=== PATIENT | female | born 1955 | race Two or more races ===

== ENCOUNTER 2019-05-01 12:31 | Inpatient (IN) | payer OTHER ==
[~2019-05-01] VITALS: Ht 160 cm; Wt 73.4 kg
[2019-05-01 13:42] LABS: Urine Bacteria NONE SEEN /hpf (None Seen); Urine Blood Negative /uL (Negative); Urine Mucus FEW (None Seen); Urine Specific Gravity 1.021 (1.001-1.035); Urine WBC 1 /hpf (0 - 5)
[2019-05-01 14:32] LABS: Basophils # (auto) 0.1 uL; Eosinophils # (auto) 0.1 uL; Eosinophils % (auto) 1.7 % (0.0-7.0); Hematocrit 41.7 % (36.0-46.0); Hemoglobin 13.9 g/dL (12.2-16.2); Lymphocytes # (auto) 1.7 uL; Lymphocytes % (auto) 25.3 % (10.0-50.0); Mean Corpuscular Hemoglobin 30.9 pg (28.0-32.0); Mean Corpuscular Hgb Conc. 33.4 g/dL (32.0-36.0); Mean Corpuscular Volume 92.5 fL (80.0-100.0); Monocytes # (auto) 0.5 uL; Monocytes % (auto) 7.6 % (0.0-12.0); Neutrophils # (auto) 4.4 uL; Neutrophils % (auto) 64.4 % (37.0-80.0); Platelet Count (auto) 348 10^3/uL (140-450); Red Blood Cells 4.51 10^6/uL (4.0-5.20); Red Cell Distribution Width 16.1 % (11.8-14.3); White Blood Cell 6.8 10^3/uL (4.4-10.8)
[2019-05-01 14:40] LABS: Albumin 3.7 g/dL (3.4-5.0); BUN/Creatinine Ratio 10.8; Calcium 9.1 mg/dL (8.5-10.1); Potassium 4.2 mmol/L (3.5-5.1)
[2019-05-01 14:42] LABS: Bilirubin, Total 0.2 mg/dL (0.2-1.0); Total Protein 8.7 g/dL (6.4-8.2)
[2019-05-01] MEDS ORDERED: metroNIDAZOLE 500MG/100ML 100 ML IV ONE (17:00)
[2019-05-01] MEDS ORDERED: SODIUM CHLORIDE 0.9% 1,000 ML IV ONE (17:00)
[2019-05-01] MEDS ORDERED: NITROGLYCERIN 0.4 MG SL TAB SL PRN (17:45)
[2019-05-01] MEDS ORDERED: ONDANSETRON HCL 4 MG/2 ML VIAL IV PRN (17:45)
[2019-05-01] MEDS ORDERED: MORPHINE SULF INJ 2 MG/ML SYRINGE 1ML IV PRN (17:45)
[2019-05-01] MEDS ORDERED: cefTRIAXone 1GM/50ML D5W 50 ML IV ONE (17:45)
[2019-05-01] MEDS ORDERED: DEXTROSE (50%) 50ML SYRG IV PRN (17:45)
[2019-05-01] MEDS: SODIUM CHLORIDE 0.9% 1,000 ML IV SCH ×2 (17:51→18:53)
--- NOTE | 2019-05-01 18:15 | NUR ---
MS admit from ER INGAMIHAI admitted to tele/MS after SBAR received. Patient oriented to MARIAA holland RN, unit, room, bed, and unit policies regarding patient care and visiting hours. Patient weighed by bedscale and encouraged to call if they need something. All questions and concerns addressed, patient verbalized understanding.
[2019-05-01] MEDS ORDERED: LISI-646 (18:40)
[2019-05-01] MEDS ORDERED: METF-372 (18:40)
--- NOTE | 2019-05-01 19:24 | NUR ---
Opening Shift Note Assumed care of patient, awake and alert x 4. No S/S of distress/SOB. Bed is in lowest position and locked. Call light within reach. Board updated. NS infusing at ordered rate. Instructed on POC and to call for assist PRN, will continue to monitor for changes Q1hr and PRN.
[2019-05-01 19:29] VITALS: BP 130/74
[2019-05-01] MEDS ORDERED: TRAZ50TA2 PO (19:41)
[2019-05-01] MEDS ORDERED: OMEP20TA PO (19:41)
[2019-05-01] MEDS: MORPHINE SULF INJ 2 MG/ML SYRINGE 1ML IV PRN (19:57)
--- NOTE | 2019-05-01 21:58 | NUR ---
Paging hospitalist to notify them of abnormal result of Abdominal Pelvic CT. Abdominal pelvic CT scan revealed approximately half of the patient's stomach is in a moderate hiatal hernia in addition to the mild diverticulitis found. Patient is not having any trouble swallowing food but has been having gastroesophageal reflux worseing over the last 6 months. Notifying hospitalist to see if they would like to order a consult or test.
[2019-05-01 22:00] VITALS: BP 121/70
[2019-05-01] MEDS: InsuLIN REG 1unit/0.01ml Soln (100units/ml) SC SCH (22:00)
[2019-05-01] MEDS: metroNIDAZOLE 500MG/100ML 100 ML IV SCH (22:18)
--- NOTE | 2019-05-01 22:18 | NUR ---
Spoke to NORA Domínguez who ordered a GI Consult. Addendum: 05/01/19 at 6735 by ELIZABETH WILKES RN Order repeated, verified, and placed.
[2019-05-01] MEDS: ACCU-CHEK COMFORT CURVE STRIP VI SCH (22:19)
[2019-05-02] MEDS: MORPHINE SULF INJ 2 MG/ML SYRINGE 1ML IV PRN (00:08)
[2019-05-02 05:00] VITALS: BP 116/79
[2019-05-02] MEDS: metroNIDAZOLE 500MG/100ML 100 ML IV SCH ×2 (06:02→14:20)
[2019-05-02] MEDS: InsuLIN REG 1unit/0.01ml Soln (100units/ml) SC SCH ×3 (06:25→17:00)
[2019-05-02] MEDS: ACCU-CHEK COMFORT CURVE STRIP VI SCH ×3 (06:26→17:00)
[2019-05-02 08:00] VITALS: BP 94/60
--- NOTE | 2019-05-02 08:11 | NUR ---
Opening note Patient awake with no distress noted upon assessment. Patient able to ambulate and turn self. IV located in right hand, 22G and on clear liquid diet. Call light within reach, bed in lowest position and side rails up x 2. GI consult confirmed. Will continue to monitor.
[2019-05-02] MEDS ORDERED: cefTRIAXone 1GM/50ML D5W 50 ML IV SCH (09:00)
[2019-05-02 09:20] VITALS: BP 94/60
[2019-05-02] MEDS ORDERED: LISINOPRIL 10 MG TAB PO SCH (10:00)
[2019-05-02] MEDS ORDERED: PANTOPRAZOLE 40 MG TAB PO SCH ×2 (10:00→11:00)
--- NOTE | 2019-05-02 10:24 | NUR ---
ref[employer] Per consult home health. [facility] faxed [facility] ph:[phone] fx: [phone] per Aline [place] has accepted and service to start tomorrow 05/04/19. Alina working on auth from [employer]. Addendum: 05/03/19 at 1725 by Edwina Cartagena Amended: Links added.
[2019-05-02 13:10] VITALS: BP 129/82
--- NOTE | 2019-05-02 14:15 | NUR ---
DR MARTA AMOR FOR GI CONSULT
[2019-05-02] MEDS: SODIUM CHLORIDE 0.9% 1,000 ML IV SCH (14:18)
[2019-05-02] MEDS ORDERED: PANT40T PO (15:34)
[2019-05-02] MEDS ORDERED: METR500T PO (15:34)
[2019-05-02] MEDS ORDERED: LEVO500T21 PO (15:34)
[2019-05-02 16:00] VITALS: BP 96/55
--- NOTE | 2019-05-02 17:07 | NUR ---
PAGED Page sent to Dr Thea Aranda to verify patients discharge. Awaiting further orders before discharging.
--- NOTE | 2019-05-02 17:16 | NUR ---
TELEPHONE ORDERS Telephone orders received, read back and noted. Per Dr Aranda home health has already been arranged with insurance, patient cleared for discharge today.
--- NOTE | 2019-05-02 17:50 | NUR ---
Discharge instructions given as ordered. Encourage to follow up with PMD as instructed. All questions and concerns addressed. Patient verbalized understanding. Medication reconciliation form completed and copy given to patient. IV removed with catheter intact, pressure dressing applied. Patient ambulated of unit with all personal belongings, accompanied by staff and family member. No distress noted at time of departure.
[2019-05-03] MEDS ORDERED: PANTOPRAZOLE 40 MG TAB PO SCH (10:00)
== END 2019-05-02 18:00 | disposition home health service (06) | DRG 392 ==
LOC: ER 12:39 → WEST WING 12:40
PROVIDERS: ADMIT Nurse Practitioner Acute Care; ATTEND Internal Medicine
DX: K57.32 Diverticulitis of large intestine without perforation or abscess without bleeding (principal); I10 Essential (primary) hypertension; E11.9 Type 2 diabetes mellitus without complications; Z79.84 Long term (current) use of oral hypoglycemic drugs; K21.9 Gastro-esophageal reflux disease without esophagitis; K44.9 Diaphragmatic hernia without obstruction or gangrene; Z90.49 Acquired absence of other specified parts of digestive tract; Z90.710 Acquired absence of both cervix and uterus
CPT/HCPCS: 36415; 74176; 80053; 81001; 82962; 85025; 96365; G0378; J0696; J3490

== ENCOUNTER 2024-11-13 19:44 | Emergency (ER) | payer OTHER ==
[~2024-11-13] VITALS: Ht 162.6 cm; Wt 71.5 kg
[~2024-11-13 19:44] MED LIST: LEVO500T31 PO; LISI20TA56; METF-372; METR500T PO; PANT40T PO; TRAZ-227 PO
--- NOTE | 2024-11-13 20:31 | ED.PDOC ---
History of Present Illness HPI Comments 68 y.o. F, with a history of CVA, DM, GERD, HTN, and varicose veins, presents with c/o inner, left-knee pain, today. Patient comments on pain being ongoing, chronically and intermittently, for unspecified duration of time, that, suddenly, became worse and constant all day, today. She comments on pain being " sharp" in quality and describes it as a "hot liquid running down [her] leg." Patient also reports on, already, consulting with her PCP regarding issue and has an upcoming US appointment on 11/21/24 but says she is unable to bear the bear and is concerned, currently. She endorses no further relevant or pertinent information, such as recent injuries or strenuous activities. Patient denies having any numbness, tingling, weakness, shortness of breath, chest pain, or other associated symptoms or modifiers at this time. Chief Complaint: Lower Extremity Time Seen by MD: 20:00 Primary Care Provider: KAYLEE Griffith Notes: Nurses Notes, Medications, Allergies Allergies: Coded Allergies: NO KNOWN ALLERGIES (Unverified , 05/01/19) Home Meds Active Scripts Pantoprazole Sodium Sesquihydr (Pantoprazole Sodium) 40 Mg Tab, 40 MG PO DAILY for 30 Days Prov:JUANITO FERREIRA MD 05/02/19 Metronidazole (Flagyl) 500 Mg Tab, 500 MG PO Q8HR for 14 Days Prov:JUANITO FERREIRA MD 05/02/19 Levofloxacin (Levaquin) 500 Mg Tab, 500 MG PO DAILY, #14 Prov:JUANITO FERREIRA MD 05/02/19 Reported Medications Trazodone Hcl (Trazodone Hcl) 50 Mg Tab, 50 MG PO, MG 05/01/19 Lisinopril (Lisinopril) 20 Mg Tab 05/01/19 Metformin Hydrochloride (Metformin Hcl) 1,000 Mg Tab 05/01/19 Information Source: Patient Mode of Arrival: Ambulatory Severity: Moderate Timing: Other (see HPI) Duration: Since onset Prehospital treatment: None Past Medical History PAST MEDICAL HISTORY: CVA, DM, GERD, HTN Past Medical History (Other): varicose veins Surgical History: Denies all surgeries BIBLICAL STUDIES PROFESSOR History: No Pertinent BIBLICAL STUDIES PROFESSOR History Family History Family History: Unknown Social History Smoker: Non-Smoker Alcohol: Rarely Drugs: Denies Drug Use Lives In: Home Musculoskeletal: reports: others (inner left knee pain ) All Other Systems: Reviewed and Negative (negative unless otherwise stated above or in HPI) Physical Exam General Appearance: Mild Distress, Normal HEENT: Normal ENT Inspection, Pharynx Normal, TMs Normal Neck: Full Range of Motion, Non-Tender, Normal, Normal Inspection Respiratory: Chest Non-Tender, Lungs Clear, No Accessory Muscle Use, No Respiratory Distress, Normal Breath Sounds Cardiovascular: No Edema, No JVD, No Murmur, No Gallop, Normal Peripheral Pulses, Regular Rate/Rhythm Breast Exam: Deferred Gastrointestinal: No Organomegaly, Non Tender, No Pulsatile Mass, Normal Bowel Sounds, Soft Genitalia: Deferred Pelvic: Deferred Rectal: Deferred Extremities: No calf tenderness, Normal capillary refill, Normal range of motion, No pedal edema, Other (slight tenderness to LLE, full ROM to LLE; multiple varicose veins to BLE) Musculoskeletal : Apperance: Normal Neurologic: Alert, conference reservationist II-XII nml as Tested, No Motor Deficits, Normal Affect, Normal Mood, No Sensory Deficits Cerebellar Function: Normal Reflexes: Normal Skin: Dry, Normal Color, Warm Lymphatic: No Adenopathy Was a procedure done? Was a procedure done?: No Differential Dx Considerations may include: DVT, cellulitis, dermatitis, musculoskeletal pain, sprain X-Ray, Labs, Meds, VS Vital Signs Date Time Temp Pulse Resp B/P (MAP) Pulse Ox O2 Delivery O2 Flow Rate FiO2 11/13/24 19:59 97.3 78 18 196/102 (133) [address] [address] Ph: [phone] DIAGNOSTIC IMAGING Diagnostic Imaging Report : [id number] Signed PATIENT: MIHAI XIONG ACCT: [id number] UNIT: [id number] : 1955 LOC: ER ROOM / BED: / AGE / SEX: 68 / F ADM STATUS: REG ER SERVICE 08 ORDERING PHYSICIAN: FLOR GUTIERREZ MD PROCEDURE(s): LLDVT - LT Lower DVT REASON: left knee pain ORDER NUMBER(s): [id number], ACCESSION NUMBER(s): [id number] Left lower extremity venous duplex Clinical History: left knee pain Comparison: None Technique: Duplex Doppler evaluation of the deep venous systems of both lower extremities from the common femoral veins to the popliteal veins including color Doppler and spectral/pulsed waveform analysis was performed. Findings: LEFT SIDE: The common femoral vein demonstrates appropriate compressibility and waveform variability. There is compressibility/patency of the great saphenous vein at the proximal thigh. The femoral vein demonstrates appropriate compressibility and waveform variability. The deep femoral vein demonstrates appropriate compressibility and waveform variability. The popliteal vein demonstrates appropriate compressibility and waveform variability. There is normal compressibility at the tibioperoneal trunk. Impression: 1. No left femoropopliteal venous thrombosis. ATED BY: MALLORY MEDINA Jr., DO DICTATED DATE/TIME: 11/13/242044 SIGNED BY: MALLORY MEDINA Jr., SIGNED DATE/TIME: 11/13/242044 CC: The patient was discharged with ibuprofen. Time of 1ST Reevaluation: 20:30 Reevaluation 1ST: Unchanged Patient Education/Counseling: Diagnosis, Treatment Family Education/Counseling: No Family Present Departure 1 Departure Time of Disposition: 21:34 Impression: Primary Impression: Knee strain Qualified Codes: S86.912A - Strain of unspecified muscle(s) and tendon(s) at lower leg level, left leg, initial encounter Disposition: HOME / SELF CARE / HOMELESS Condition: Stable Additional Instructions: Reassessed patient, vital signs stable. Denies any new symptoms. Patient is able to tolerate PO and ambulate/be mobile at their baseline without concern. Risks and benefits of all medications given or prescribed, if any, discussed. All lab work, imaging and diagnostic studies were reviewed by me. The patient was counseled extensively on my clinical impression, diagnosis, expected course of the disease, and plan, including their follow-up care. Will discharge patient. Patient instructed to follow up with Primary Care Physician within 24-48 hours. Strict return precautions given for further exacerbation of symptoms or for new symptoms. The patient was given the opportunity to ask questions and all questions were answered by myself and the nursing/tech staff. Patient is in agreement with the care plan. The patient verbally expressed understanding of the discharge instructions, including the reasons to return to the Emergency Department. e-Prescriptions Ibuprofen (Advil) 200 Mg Cap 800 MG PO TID, #30 CAP Prov: FLOR GUTIERREZ MD 11/13/24 Discharged With: Self Critical Care Note Critical Care Time?: No Stability Stability form required: No Heart Score Heart Score: Heart Score Response (Comments) Value History N/A 0 EKG N/A 0 Age N/A 0 Risk Factors N/A 0 Troponin N/A 0 Total 0 I personally scribed for FLOR GUTIERREZ MD ([email or web address]) on 11/13/24 at 20:31. Electronically submitted by Bishnu Cisneros ([email or web address]). LFOR GUTIERREZ MD Nov 13, 2024 20:31
--- NOTE | 2024-11-13 20:48 | DVH ---
Left lower extremity venous duplex Clinical History: left knee pain Comparison: None Technique: Duplex Doppler evaluation of the deep venous systems of both lower extremities from the common femora l veins to the popliteal veins including color Doppler and spectral/pulsed waveform analysis was perf ormed. Findings: LEFT SIDE: The common femoral vein demonstrates appropriate compressibility and waveform variability. There is compressibility/patency of the great saphenous vein at the proximal thigh. The femoral vein demonstrates appropriate compressibility and waveform variability. The deep femoral vein demonstrates appropriate compressibility and waveform variability. The popliteal vein demonstrates appropriate compressibility and waveform variability. There is normal compressibility at the tibioperoneal trunk. Impression: 1. No left femoropopliteal venous thrombosis.
[2024-11-13] MEDS ORDERED: IBUP200C14 PO (21:36)
[2024-11-13 23:00] VITALS: BP 154/88; PULSE 78; RESP 18; TEMP 97.3; O2SAT 97
== END 2024-11-13 23:01 | disposition home or self-care (01) ==
LOC: ER 19:44
DX: S86.912A Strain of unspecified muscle(s) and tendon(s) at lower leg level, left leg, initial encounter (principal); E11.9 Type 2 diabetes mellitus without complications; K21.9 Gastro-esophageal reflux disease without esophagitis; I10 Essential (primary) hypertension; Z86.73 Personal history of transient ischemic attack (TIA), and cerebral infarction without residual deficits; I83.93 Asymptomatic varicose veins of bilateral lower extremities; X58.XXXA Exposure to other specified factors, initial encounter; Y93.89 Activity, other specified; Y92.89 Other specified places as the place of occurrence of the external cause; Y99.8 Other external cause status
CPT/HCPCS: 93971

== ENCOUNTER → 2025-05-11 | Day surgery (SDC) | payer OTHER ==
[~2025-05-11] VITALS: Ht 162.6 cm; Wt 63.0 kg
[~2025-05-11] MED LIST changes: +ACCU-CHEK COMFORT CURVE STRIP VI ONE; +ATOR20TA PO; +EMPA1TAB PO; +HEPARIN SODIUM (PORCINE) 5000 UNITS/ML 1ML VIAL ONE; +HYDROmorphone HCL 2 MG/ML VL/or syr IV PRN; +KETOROLAC TROMETH 30 MG/ML 1ML VIAL IV ONE; -LEVO500T31 PO; +LIDOCAINE 1% HCL (LOCAL ANESTH.) INJ 20ML MDV ONE; +LISI10TA34 PO; -LISI20TA56; +LYMPHAZURIN 1 % INJ 5ML VIAL SC ONE; +METOCLOPRAMIDE HCL 5MG/ml INJ 2ml VIAL IV ONE; -METR500T PO; +MORPHINE SULFATE 4 MG/ML SYR/VIAL IV PRN; +MORPHINE SULFATE INJ 2 MG/ml SYRG IV PRN; +PIO30T PO; -TRAZ-227 PO; +ceFAZolin 2 GM/D5W50ml 50 ML IV ONE
[2025-05-11] MEDS: BUPIVACAINE 0.5% MPF INJ 30ML SDV IJ ONE (11:30)
--- NOTE | 2025-05-11 11:50 | DVH ---
Specimen radiograph INDICATION: BREAST BX Technique: Specimen radiograph was obtained of the left breast. FINDINGS/IMPRESSION: Postop radiograph demonstrates the MICHELLE ALTERNATIVE EN[employer]GY TECHNICIAN with the specified biopsy marker clip contained within the specimen.
--- NOTE | 2025-05-11 12:43 | DVHOP ---
DATE OF SURGERY: 05/11/2025 PREOPERATIVE DIAGNOSIS: Invasive lobular carcinoma of the left breast. POSTOPERATIVE DIAGNOSIS: Invasive lobular carcinoma of the left breast. PROCEDURES: * Left periareolar intradermal Lymphazurin injection. * Left breast lumpectomy. * Left axillary sentinel lymph node biopsy. * Placement of fiducial markings. SURGEON: Lucio Duron MD FACILITY SUPERVISOR: None. ANESTHESIOLOGIST: Dr. Javier. ANESTHESIA: General by means of endotracheal intubation. INTRAOPERATIVE FINDINGS: * MICHELLE Belt Picker implant and preoperative marker located within specimen, confirmed with intraoperative mammogram. * Lymphazurin and radioisotope uptake in 2 out of the 3 identified central lymph nodes. * No evidence of Lymphazurin uptake in any other lymph node within the axillary fossa. * Weak background radioactive signal in the supraclavicular retropectoral region. Unable to identify any lymph nodes. ESTIMATED BLOOD LOSS: Minimal. IV FLUIDS: Per anesthesia charting. URINE OUTPUT: Not recorded given Bull[place] catheter was not inserted. DRAINS: None. IMPLANTS: Small hemoclips, use of fiducial markings. COMPLICATIONS: None. Procedure well tolerated and transferred to recovery room in stable condition. INDICATIONS FOR PROCEDURE: The patient is an unfortunate 69-year-old female with recent diagnosis of invasive lobular carcinoma. Based on the above-mentioned information, she was recommended to undergo a left breast lumpectomy with left axillary sentinel lymph node biopsy by possible lymphadenectomy. The procedure, risks, and benefits were explained in a detailed and extensive fashion. All questions were answered. She understood and agreed to proceed. DESCRIPTION OF PROCEDURE: The patient was taken to the operating room where she was placed in the dorsal decubitus position on the operating room table. Once adequate anesthesia was achieved, the left cervicothoracic region including abdominal, thoracic, flank, arm, and axillary region were widely prepped and draped in the usual sterile fashion. My attention was directed to her left breast. Using a sterilely draped MICHELLE Belt Picker probe, the location of the lesion was identified in the upper outer breast. At this time, local anesthesia consisted of 1% lidocaine/0.5% Marcaine was infiltrated in the area of interest. An incision was made following the skin creases/lines. The dermis and subcutaneous tissue were incised to the level of the mammary tissue with electrocautery. Circumferential flaps were created around the area of interest, using the MICHELLE Belt Picker probe as a guide. Circumferential excision was performed around the MICHELLE Belt Picker implant. The specimen was marked in situ with 2 short sutures for superior, 2 long sutures for lateral and then excised from the posterior margin with electrocautery. It was marked with ink for posterior margin. The specimen was placed in a specimen cup as there were no radiographic grids available. The patient was taken to the radiology department where a mammogram was obtained, confirming that the preoperative marker and the MICHELLE Belt Picker implant were located within the specimen. At this time, my attention was directed towards the left axillary fossa. Through the same incision, I was able to gain access to the axillary fossa. Using a sterilely draped Neoprobe instrument, the sentinel nodes were individually identified. [place] node #1 was individually dissected and a 10-second count was obtained up to 13,050. Subsequent lymph nodes were identified obtaining counts between a little over 3000 and 2000 respectively for sentinel node #2 and 3. [place] node #2 was not sent as it was a very small node. [place] node #3 was sent for frozen section. Frozen section for sentinel lymph node #1, which was the highest count was negative. Therefore, the remaining sentinel nodes were sent for permanent section. The area was copiously irrigated. All the fluid was evacuated. There was no evidence of active bleeding. There was no further Lymphazurin uptake in the axillary region. There was a very weak signal in the retropectoral supraclavicular region. There was no other gross lymphadenopathy. At this time, the axillary fossa was closed with 3-0 Vicryl suture. Small hemoclips were placed in the lumpectomy cavity site marking the superior, inferolateral, and medial margin as well as the posterior margin. Then, the dermis was approximated with 3-0 Vicryl suture. The skin was closed with 4-0 Monocryl in a subcuticular fashion. The wound was washed and dried and a sterile dressing was applied. Sterile glue was applied. The patient tolerated well the procedure. There were no complications. She was successfully extubated in the operating room and transferred to the recovery room in stable condition. MD TOBI Carrillo/ORI TID: [id number] RECEIPT: [id number]
[2025-05-11 12:50] VITALS: BP 134/71; PULSE 92; RESP 13; O2SAT 97
== END | disposition home or self-care (01) ==
LOC: SUR 07:18
DX: C50.912 Malignant neoplasm of unspecified site of left female breast (principal); I10 Essential (primary) hypertension; E11.9 Type 2 diabetes mellitus without complications; F41.9 Anxiety disorder, unspecified; Z90.710 Acquired absence of both cervix and uterus; Z90.49 Acquired absence of other specified parts of digestive tract; Z79.899 Other long term (current) drug therapy; Z98.890 Other specified postprocedural states; Z98.41 Cataract extraction status, right eye; Z98.42 Cataract extraction status, left eye
CPT/HCPCS: 19301; 38525; 38900; 76098; 82962; 88305; 88331; 88342; J0690; J1644; J2003; J3490; Q9968

== ENCOUNTER → 2025-05-11 | Outpatient (CLI) | payer OTHER ==
[~2025-05-11] MED LIST changes: -ACCU-CHEK COMFORT CURVE STRIP VI ONE; -HEPARIN SODIUM (PORCINE) 5000 UNITS/ML 1ML VIAL ONE; -HYDROmorphone HCL 2 MG/ML VL/or syr IV PRN; +KETAMINE 50mg/ML 1ml syringe ONE; -KETOROLAC TROMETH 30 MG/ML 1ML VIAL IV ONE; -LIDOCAINE 1% HCL (LOCAL ANESTH.) INJ 20ML MDV ONE; +LIDOCAINE 1% INJ PF 5ML AMP ONE; -LYMPHAZURIN 1 % INJ 5ML VIAL SC ONE; -METOCLOPRAMIDE HCL 5MG/ml INJ 2ml VIAL IV ONE; +MIDAZOLAM HCL 2MG/2ML 2ml VIAL (1mg/ml) ONE; -MORPHINE SULFATE 4 MG/ML SYR/VIAL IV PRN; -MORPHINE SULFATE INJ 2 MG/ml SYRG IV PRN; +ONDANSETRON HCL 4 MG/2 ML VIAL ONE; +PROPOFOL 10 MG/ML 20 ML IV ONE; +ROCURONIUM 10MG/ML 10ML VIAL IV ONE; +SODIUM CHLORIDE LOCK 50 ML ONE; -ceFAZolin 2 GM/D5W50ml 50 ML IV ONE; +fentaNYL CITRATE 100 MCG/2 ML VL ONE; +fentaNYL CITRATE 5 ML ONE
--- NOTE | 2025-05-11 14:04 | DVH ---
NUCLEAR MEDICINE LYMPHOSCINTIGRAPHY HISTORY: LEFT BREAST CANCER TECHNIQUE/DOSE: 1 mCi Lymphoseek divided equally into 2 syringes. 2 intradermal injections around th e nipple of the left breast were performed at the 12:00 and 6:00 positions along the areola line. The left breast and axilla were immediately scanned for activity. FINDINGS: The 2 injection sites around the left nipple are visualized. Planar delayed image shows lymphatic ac tivity. IMPRESSION: Successful left breast lymphoscintigraphy.
== END | disposition home or self-care (01) ==
LOC: XYW 08:43
DX: C50.912 Malignant neoplasm of unspecified site of left female breast (principal)
CPT/HCPCS: 78195; A9541; J1100; J2250; J2405; J2704; J3010